=== PATIENT | male | born 1965 | race Caucasian/White ===

== ENCOUNTER 2018-10-22 06:46 | Emergency (ER) | payer BC ==
--- NOTE | 2018-10-22 08:56 | RAD REPORT ---
EXAM DESCRIPTION: Fili Spicer (2 Views)10/22/2018 7:45 am CLINICAL HISTORY: Chest pain COMPARISON: None FINDINGS: The lungs appear clear of acute infiltrate. The heart is normal size IMPRESSION: No acute abnormalities displayed
--- NOTE | 2018-10-22 09:19 | ER ---
Nurse's Notes [facility] Name: Celso Tipton Age: 53 yrs Sex: Male : 1965 Arrival Date: 10/22/2018 Time: 06:49 Bed 20 Private MD: Diagnosis: Chest pain on breathing Presentation: 10/22 07:11 Presenting complaint: Patient states: R lateral chest wall pain that began 1 week ago. ss Denies injury, SOB, cough and/or fever. Transition of care: patient was not received from another setting of care. Onset of symptoms was October 15, 2018. Risk Assessment: Do you want to hurt yourself or someone else? Patient reports no desire to harm self or others. Initial Sepsis Screen: Does the patient meet any 2 criteria? No. Patient's initial sepsis screen is negative. Does the patient have a suspected source of infection? No. Patient's initial sepsis screen is negative. Care prior to arrival: None. 07:11 Method Of Arrival: Ambulatory ss 07:11 Acuity: PHAN 3 ss Historical: - Allergies: 07:14 Codeine; ss - Home Meds: 07:14 None [Active]; ss - PMHx: 07:14 None; ss - PSHx: 07:14 back; shoulder repair; knee repair; ss - Immunization history:: Adult Immunizations up to date. - Social history:: Smoking status: Patient uses tobacco products, 2-3 PPD. - Ebola Screening: : Patient denies exposure to infectious person Patient denies travel to an Ebola-affected area in the 21 days before illness onset. Screenin:27 Abuse screen: Denies threats or abuse. Denies injuries from another. Nutritional ph screening: No deficits noted. Tuberculosis screening: No symptoms or risk factors identified. Fall Risk None identified. Assessment: 07:30 General: Appears in no apparent distress. comfortable, slender, well groomed, Behavior ph is calm, cooperative, appropriate for age, Denies fever, feeling ill. Pain: Complains of pain in chest Pain does not radiate. Neuro: Level of Consciousness is awake, alert, obeys commands, Oriented to person, place, time, situation, Denies weakness dizziness, headache. Cardiovascular: Reports chest pain, Denies diaphoresis, fatigue, lightheadedness, nausea, palpitations, shortness of breath, Capillary refill < 3 seconds in bilateral Patient's skin is warm and dry. Respiratory: Airway is patent Respiratory effort is even, unlabored, Respiratory pattern is regular, symmetrical, Denies cough, shortness of breath. GI: No signs and/or symptoms were reported involving the gastrointestinal system. Derm: Skin is intact, is healthy with good turgor, Skin is pink, warm \T\ dry. Musculoskeletal: Circulation, motion, and sensation intact. Range of motion: intact in all extremities. 08:27 Reassessment: Patient appears in no apparent distress at this time. Patient and/or ph family updated on plan of care and expected duration. Pain level reassessed. Patient is alert, oriented x 3, equal unlabored respirations, skin warm/dry/pink. Pt resting quietly, awaiting CXR results. 09:30 Reassessment: Patient appears in no apparent distress at this time. Patient and/or ph family updated on plan of care and expected duration. Pain level reassessed. Patient is alert, oriented x 3, equal unlabored respirations, skin warm/dry/pink. Pt d/c home w/ . Vital Signs: 07:14 BP 140 / 85; Pulse 73; Resp 18; Temp 97.9(TE); Pulse Ox 96% on R/A; Height 5 ft. 11 in. ss (180.34 cm); Pain 8/10; 07:14 Weight 77.11 kg; ss 08:45 BP 137 / 78; Pulse 69; Resp 18; Temp 97.5; Pulse Ox 97% on R/A; ph 07:14 Body Mass Index 23.71 (77.11 kg, 180.34 cm) ED Course: 06:49 Patient arrived in ED. al2 06:54 Lyndsay Spence, ELC is [facility]. kb 06:54 Tao Mast MD is Attending Physician. kb 07:11 Tosin Guadalupe, MATTHEW is Primary Nurse. ph 07:12 Triage completed. ss 07:14 Arm band placed on right wrist. ss 07:28 EKG done, by location and measurement technician. reviewed by Lyndsay RUIZ. at1 07:39 X-ray completed. Patient tolerated procedure well. Patient moved to radiology via jb2 wheelchair. Patient moved back from radiology. 07:50 Chest Pa And Lat (2 Views) XRAY In Process Unspecified. EDMS 08:29 Patient has correct armband on for positive identification. Bed in low position. Call ph light in reach. Side rails up X 1. Warm blanket given. PO fluids given. 09:39 No provider procedures requiring assistance completed. Patient did not have IV access ph during this emergency room visit. Administered Medications: No medications were administered Outcome: 09:18 Discharge ordered by . tesha 09:30 Patient left the ED. ph 09:30 Discharged to home ambulatory, with significant other. ph 09:30 Condition: good 09:30 Discharge instructions given to patient, Instructed on discharge instructions, follow up and referral plans. medication usage, Demonstrated understanding of instructions, follow-up care, medications. Signatures: Dispatcher [employer] EDMS Lyndsay Spence, SALES ACCOUNT REPRESENTATIVE-C SALES ACCOUNT REPRESENTATIVE-Travis Ward jb2 Katie José, RN RN Dafne Gonzalez, porter bath EKG Tat1 Tosin Guadalupe RN RN ph Love, Angelica al2
--- NOTE | 2018-10-22 09:20 | EDPHYS ---
Physician Documentation [facility] Name: Celso Tipton Age: 53 yrs Sex: Male : 1965 Arrival Date: 10/22/2018 Time: 06:49 Bed 20 Private MD: ED Physician Tao Mast HPI: 10/22 08:32 This 53 yrs old Male presents to ER via Ambulatory with complaints of Right kb chest wall Pain. 08:32 The patient or guardian reports chest pain that is located primarily in the anterior kb chest wall, right. Onset: 1 week(s) ago. The pain does not radiate. Associated signs and symptoms: The patient has no apparent associated signs or symptoms. The chest pain is described as aching. Duration: The patient or guardian reports a single episode. Modifying factors: The symptoms are alleviated by nothing. the symptoms are aggravated by palpation of area. Severity of pain: At its worst the pain was moderate in the emergency department the pain is unchanged. The patient has not experienced similar symptoms in the past. The patient has not recently seen a physician. 09:17 Pt reports the pain started a week ago. Worse with movement, deep breath and palpation. kb States "I just need an x-ray to make sure there is nothing in my lung." Reports he smokes 2-3 packs per day. Historical: - Allergies: 07:14 Codeine; ss - Home Meds: 07:14 None [Active]; ss - PMHx: 07:14 None; ss - PSHx: 07:14 back; shoulder repair; knee repair; ss - Immunization history:: Adult Immunizations up to date. - Social history:: Smoking status: Patient uses tobacco products, 2-3 PPD. - Ebola Screening: : Patient denies exposure to infectious person Patient denies travel to an Ebola-affected area in the 21 days before illness onset. ROS: 08:29 Constitutional: Negative for fever, chills, and weight loss, Respiratory: Negative for kb shortness of breath, cough, wheezing, and pleuritic chest pain, Abdomen/GI: Negative for abdominal pain, nausea, vomiting, diarrhea, and constipation, Back: Negative for injury and pain, : Negative for injury, bleeding, discharge, and swelling, MS/Extremity: Negative for injury and deformity, Skin: Negative for injury, rash, and discoloration, Neuro: Negative for headache, weakness, numbness, tingling, and seizure. 08:29 Cardiovascular: Positive for chest pain, of the right lateral anterior chest, Negative for edema, orthopnea, palpitations, paroxysmal nocturnal dyspnea. Exam: 08:29 Constitutional: This is a well developed, well nourished patient who is awake, alert, kb and in no acute distress. Head/Face: Normocephalic, atraumatic. Neck: Trachea midline, no thyromegaly or masses palpated, and no cervical lymphadenopathy. Supple, full range of motion without nuchal rigidity, or vertebral point tenderness. No Meningismus. Cardiovascular: Regular rate and rhythm with a normal S1 and S2. No gallops, murmurs, or rubs. Normal PMI, no JVD. No pulse deficits. Abdomen/GI: Soft, non-tender, with normal bowel sounds. No distension or tympany. No guarding or rebound. No evidence of tenderness throughout. Back: No spinal tenderness. No costovertebral tenderness. Full range of motion. Skin: Warm, dry with normal turgor. Normal color with no rashes, no lesions, and no evidence of cellulitis. MS/ Extremity: Pulses equal, no cyanosis. Neurovascular intact. Full, normal range of motion. Neuro: Awake and alert, GCS 15, oriented to person, place, time, and situation. Cranial nerves II-XII grossly intact. Motor strength 5/5 in all extremities. Sensory grossly intact. Cerebellar exam normal. Normal gait. 08:29 Chest/axilla: Inspection: normal, Palpation: tenderness, that is moderate, of the right lateral anterior chest, that totally reproduces the patient's complaints. 08:29 Respiratory: Breath sounds: decreased breath sounds, that are mild, are located in both bases. Vital Signs: 07:14 BP 140 / 85; Pulse 73; Resp 18; Temp 97.9(TE); Pulse Ox 96% on R/A; Height 5 ft. 11 in. ss (180.34 cm); Pain 8/10; 07:14 Weight 77.11 kg; ss 08:45 BP 137 / 78; Pulse 69; Resp 18; Temp 97.5; Pulse Ox 97% on R/A; ph 07:14 Body Mass Index 23.71 (77.11 kg, 180.34 cm) ss MDM: 07:04 Patient medically screened. kb 08:29 Data reviewed: vital signs, nurses notes. Data interpreted: Pulse oximetry: on room air kb is 96 %. Interpretation: normal. 09:17 Counseling: I had a detailed discussion with the patient and/or guardian regarding: the kb historical points, exam findings, and any diagnostic results supporting the discharge/admit diagnosis, radiology results, the need for outpatient follow up, a family practitioner, to return to the emergency department if symptoms worsen or persist or if there are any questions or concerns that arise at home. 10/22 07:21 Order name: Chest Pa And Lat (2 Views) XRAY; Complete Time: 09:21 kb 10/22 07:21 Order name: EKG; Complete Time: 07:21 kb 10/22 07:21 Order name: EKG - Nurse/Tech; Complete Time: 07:42 kb Administered Medications: No medications were administered Disposition: 13:58 Co-signature as Attending Physician, Tao Mast MD I agree with the assessment and kdr plan of care. Disposition: 10/22/18 09:18 Discharged to Home. Impression: Chest pain on breathing. - Condition is Stable. - Discharge Instructions: Chest Wall Pain, Gyae-wl-Yfax, Pleurisy, Cpiz-ip-Pice. - Prescriptions for Diclofenac Sodium 75 mg Oral Tablet, Delayed Release (E.C.) - take 1 tablet by ORAL route 2 times per day As needed; 30 tablet. Cyclobenzaprine 10 mg Oral Tablet - take 1 tablet by ORAL route every 8 hours As needed; 21 tablet. - Medication Reconciliation Form, Thank You Letter, Antibiotic Education, Prescription Opioid Use, Work release form form. - Follow up: Emergency Department; When: As needed; Reason: Worsening of condition. Follow up: Private Physician; When: 2 - 3 days; Reason: Recheck today's complaints, Continuance of care, Re-evaluation by your physician. Signatures: Dispatcher [employer] Lyndsay Figueroa, JOSEPH VALDEZ-Tao Murray MD MD [facility] Katie José RN RN ss Tosin Guadalupe RN RN ph Corrections: (The following items were deleted from the chart) 09:30 09:18 10/22/2018 09:18 Discharged to Home. Impression: Chest pain on breathing. ph Condition is Stable. Forms are Medication Reconciliation Form, Thank You Letter, Antibiotic Education, Prescription Opioid Use. Follow up: Emergency Department; When: As needed; Reason: Worsening of condition. Follow up: Private Physician; When: 2 - 3 days; Reason: Recheck today's complaints, Continuance of care, Re-evaluation by your physician. kb
--- NOTE | 2018-10-22 12:21 | EKG ---
Test Date: 2018-10-22 Test Time: 07:28:18 Computer Laboratory Technician: JULIET MEASUREMENT RESULTS: Intervals: Rate: 63 VT: 138 QRSD: 112 QT: 416 QTc: 425 [place]: P: 69 VT: 138 QRS: 84 T: 62 INTERPRETIVE STATEMENTS: Normal sinus rhythm Minimal voltage criteria for LVH, may be normal variant Borderline ECG No previous ECG available for comparison Electronically Signed On 10-22-18 12:20:05 DIABETES NURSE by Juan Barton
== END 2018-10-22 09:30 | disposition home or self-care (01) ==
LOC: ER 06:46
DX: R07.1 Chest pain on breathing (principal); F17.200 Nicotine dependence, unspecified, uncomplicated; Z88.5 Allergy status to narcotic agent
CPT/HCPCS: 71046; 93005; 99283

== ENCOUNTER 2019-01-21 09:39 | Emergency (ER) | payer BC ==
--- OUTSIDE RECORDS SUMMARY | 2019-01-21 09:52 | XMS REPORT | Encounter Summary ---
:1965 Author Reason for Visit Right abdominal pain; heartburn/indigestion Instructions 1. Body mass index 25-29 - overweight learning about healthy weight 2. Acid reflux omeprazole 40 mg capsule,delayed release 3. Abdominal pain urinalysis, dipstick CMP, serum or plasma CBC w/ auto diff lipase, serum or plasma 4. Alcohol dependence 5. Dysphagia ENT referral Discussion Note: None recorded. Plan of Care Reminders Provider Appointments Return to on or around Manuel Sanabria , Office 11/26/2018 Lab 10/29/2018 [facility] Urinalysis, Dipstick Practice ([facility]) [place] CMP, Serum 10/29/2018 [facility] or Plasma [facility] Laboratory CBC W/ 10/29/2018 [facility] Auto Diff Practice Laboratory Lipase, 10/29/2018 [facility] Serum or Plasma Practice Laboratory Referral ENT 10/29/2018 Referral Procedures None recorded. Surgeries None recorded. Imaging None recorded. Medications Name Start Date Multi Vitamin One daily omeprazole 40 mg capsule,delayed release Take 1 capsule every day by oral route. Viagra 100 mg tablet Take 1 tablet every day by oral route as needed. Medications Administered None recorded. Vitals Height Weight BMI Blood Pressure 5 ft 8.5 in 172.6 lbs 25.9 kg/m2 (1) 147/80 mm[Hg] (2) 142/81 mm[Hg] Lab Results Date Name Specimen Result Interpretation Description Value Range Status Address Urinalysis, Color Color yellow [facility] Dipstick [facility] ([facility]) West: [id number] [address] [facility] [address], [place] Color clear [facility] Appearance [facility] ([facility]) West: [address] [address] [facility] [facility] [address], [place] Color Glucose negative [facility] Practice ([facility]) West: [address] [address] [facility] [address], [place] Color Bilirubin negative [facility] ([facility]) West: [address] [address] [facility] [facility] [address], [place] Color Ketones negative [facility] ([facility]) West: [address] [facility] [address], [place] Color Specific 1.015 [facility] West: [address] [address], [place] Color Blood negative [facility] Practice ([facility] [place]: [address] [address], [place] Color PH 7.0 [facility] Practice ([facility] West: [address], [place] Color Protein negative [facility] Practice ([facility] [place]: [address] [address], [place] Color 0.2 [facility] Urobilinogen [facility] ([facility] West: [address] [address], [place] Color Nitrites negative [facility] Practice ([facility] West: [address], [place] Color negative [facility] ([facility]: [address] [address] [facility] [facility] [address], [place] Allergies Code Code System Name Reaction Severity Status Onset NKDA Problems Name Status Onset Date Source Smoker Active 12/08/2017 Alcohol Dependence Active 10/29/2018 Procedures Date Name Performed by 09/22/2012 Orthopedic Surgery Information not available 09/22/2007 Orthopedic Surgery Information not available 09/22/1999 Orthopedic Surgery Information not available Vaccine List Vaccine Type Tdap 09/22/2013 Social History Smoking Status Heavy Tobacco Smoker (1 PPD) Past Encounters 10/29/2018 Body Mass Index 25-29 - Overweight; Acid Reflux; Abdominal Pain; Alcohol Dependence; Dysphagia Manuel Sanabria MD: [id number] [address] [address], [place] [address], Ph. History of Present Illness Abdominal Pain Reported By: Patient Notes: RUQ pain, right chest region x 3 week. Pain is achy, burning lasting for hours, wax and wanes. No nausea, vomiting, diarrhea, constipation, fever, or chills. Seen at [facility] which was negative per patient. Review of Systems: ROS as noted in the HPI Review of Systems None recorded. Physical Exam General Adult Exam (Female) Reported By: Patient Constitutional: General Appearance: healthy-appearing, well-nourished Psychiatric: Insight: good judgement. Mental Status: active and alert, normal mood ENMT: Oropharynx: moist mucous membranes, no erythema Neck: Neck: supple, trachea midline. Lymph Nodes: no cervical LAD. Thyroid: no enlargement Lungs: Respiratory effort: no dyspnea. Auscultation: breath sounds normal Cardiovascular: Heart Auscultation: RRR, no murmurs Abdomen: Inspection and Palpation: soft, non-distended, no tenderness; RUQ, LLQ pain, acute
--- OUTSIDE RECORDS SUMMARY | 2019-01-21 09:52 | XMS REPORT | Clinical Summary ---
:1965 Author Organization [facility] Address [address] [place] [address] Care Team Providers Name Role Phone Asked, No Pcp Primary Care Provider Unavailable Allergies Active Allergy Reactions Severity Noted Date Comments Codeine Itching 04/27/2017 Medications No known medications Active Problems Problem Noted Date Left nephrolithiasis 04/27/2017 Ureteral obstruction 04/27/2017 Social History Tobacco Use Types Packs/Day Years Used Date Current Every Day Smoker 1 20 Smokeless Tobacco: Current User Tobacco Cessation: Ready to Quit: No; Counseling Given: Yes Alcohol Use Drinks/Week oz/Week Comments Yes 3 Cans of beer 1.8 daily Sex Assigned at Date Recorded Not on file Job Start Date Occupation Industry Not on file Not on file Not on file Travel History Travel Start Travel End No recent travel history available. Last Filed Vital Signs Not on file Plan of Treatment Health Maintenance Due Date Last Done Comments COLON CANCER SCREENING 2013 SHINGLES VACCINES (#1) 2013 INFLUENZA VACCINE 04/22/2019 Results Not on fileafter 01/20/2018 Advance Directives Patient has advance care planning documents on file. For more information, please contact:[address] [address]
--- NOTE | 2019-01-21 10:27 | ER ---
Nurse's Notes [facility] Name: Celso Tipton Jr Age: 53 yrs Sex: Male : 1965 Arrival Date: 01/21/2019 Time: 09:41 Bed 12 Private MD: Diagnosis: Streptococcal pharyngitis Presentation: 01/21 09:51 Presenting complaint: Patient states: yesterday woke up with fever, sore throat, body iw aches, yesterday took ibuprofen, felt weak today. Transition of care: patient was not received from another setting of care. Onset of symptoms was January 20, 2019. Risk Assessment: Do you want to hurt yourself or someone else? Patient reports no desire to harm self or others. Initial Sepsis Screen: Does the patient meet any 2 criteria? No. Patient's initial sepsis screen is negative. Does the patient have a suspected source of infection? No. Patient's initial sepsis screen is negative. Care prior to arrival: None. 09:51 Method Of Arrival: Ambulatory iw 09:51 Acuity: PHAN 4 iw Triage Assessment: 10:20 General: Behavior is calm. iw 10:24 General: Appears in no apparent distress. iw Historical: - Allergies: 09:52 Codeine; iw - Home Meds: 09:52 None [Active]; iw - PMHx: 09:52 None; iw - PSHx: 09:52 back; shoulder repair; knee repair; iw - Immunization history:: Adult Immunizations not up to date. - Social history:: Smoking status: Patient uses tobacco products, smokes one pack cigarettes per day. - Ebola Screening: : Patient negative for fever greater than or equal to 101.5 degrees Fahrenheit, and additional compatible Ebola Virus Disease symptoms Patient denies exposure to infectious person Patient denies travel to an Ebola-affected area in the 21 days before illness onset No symptoms or risks identified at this time. Screenin:32 Abuse screen: Denies threats or abuse. Denies injuries from another. Nutritional iw screening: No deficits noted. Tuberculosis screening: No symptoms or risk factors identified. Fall Risk None identified. Assessment: 10:00 General: Appears in no apparent distress. General: Reports fever for 1-2 days. Pain: iw Complains of pain in throat. Neuro: Level of Consciousness is awake, alert, obeys commands, Moves all extremities. Cardiovascular: Patient's skin is warm and dry. Respiratory: Airway is patent Respiratory effort is even, unlabored, Breath sounds are clear bilaterally. EENT: Throat. EENT: Throat is reddened has enlarged tonsils bilaterally with gag reflex present. Derm: Skin is intact, is healthy with good turgor. Musculoskeletal: Range of motion: intact in all extremities. Vital Signs: 09:52 BP 142 / 89; Pulse 114; Resp 18 S; Temp 100.9(TE); Pulse Ox 96% on R/A; Weight 80.74 iw kg; Height 5 ft. 11 in. (180.34 cm); Pain 8/10; 10:51 Pulse 99; Resp 16; iw 10:51 BP 136 / 84; Pulse 99; iw 09:52 Body Mass Index 24.83 (80.74 kg, 180.34 cm) iw ED Course: 09:41 Patient arrived in ED. as 09:52 Triage completed. iw 09:52 Lyndsay Spence FNP-C [facility]. kb 09:52 Derick Corrigan MD is Attending Physician. kb 09:52 Arm band placed on. iw 09:53 Tatyana Saunders, MATTHEW is Primary Nurse. iw 10:30 Patient has correct armband on for positive identification. iw 10:33 No provider procedures requiring assistance completed. Patient did not have IV access iw during this emergency room visit. Administered Medications: 10:32 Drug: Tylenol 1000 mg Route: PO; iw 12:58 Follow up: Response: No adverse reaction iw Outcome: 10:27 Discharge ordered by MD. kb 10:33 Discharged to home ambulatory. iw 10:33 Condition: good 10:33 Discharge instructions given to patient, Instructed on discharge instructions, follow up and referral plans. medication usage, Demonstrated understanding of instructions, follow-up care, medications, Prescriptions given X 1. 10:34 Patient left the ED. iw Signatures: Lyndsay Spence FNP-C FNP-Natayl Diaz as Tatyana Saunders, RN RN iw Corrections: (The following items were deleted from the chart) 13:43 10:51 Pulse 99bpm; Resp 16bpm; iw iw
--- NOTE | 2019-01-21 10:28 | EDPHYS ---
Physician Documentation [facility] Name: Celso Tipton Jr Age: 53 yrs Sex: Male : 1965 Arrival Date: 01/21/2019 Time: 09:41 Bed 12 Private MD: ED Physician Derick Corrigan HPI: 01/21 10:21 This 53 yrs old Male presents to ER via Ambulatory with complaints of Sore kb Throat. 10:21 The patient presents with sore throat. The patient describes throat pain as constant. kb Onset: The symptoms/episode began/occurred yesterday. Severity of symptoms: At their worst the symptoms were moderate, in the emergency department the symptoms are unchanged. Modifying factors: The symptoms are alleviated by nothing, the symptoms are aggravated by swallowing, Patient's oral intake status: good unaware of sick contact. Associated signs and symptoms: Pertinent positives: chills, fever, flu-like symptoms, arthralgias, Sore throat. The patient has experienced a previous episode. The patient has not recently seen a physician. Pt reports sore throat started yesterday. Today had chills, fever, body aches, malaise. . Historical: - Allergies: 09:52 Codeine; iw - Home Meds: 09:52 None [Active]; iw - PMHx: 09:52 None; iw - PSHx: 09:52 back; shoulder repair; knee repair; iw - Immunization history:: Adult Immunizations not up to date. - Social history:: Smoking status: Patient uses tobacco products, smokes one pack cigarettes per day. - Ebola Screening: : Patient negative for fever greater than or equal to 101.5 degrees Fahrenheit, and additional compatible Ebola Virus Disease symptoms Patient denies exposure to infectious person Patient denies travel to an Ebola-affected area in the 21 days before illness onset No symptoms or risks identified at this time. ROS: 10:22 Neck: Negative for injury, pain, and swelling, Cardiovascular: Negative for chest pain, kb palpitations, and edema, Respiratory: Negative for shortness of breath, cough, wheezing, and pleuritic chest pain, Abdomen/GI: Negative for abdominal pain, nausea, vomiting, diarrhea, and constipation, Back: Negative for injury and pain, MS/Extremity: Negative for injury and deformity, Skin: Negative for injury, rash, and discoloration, Neuro: Negative for headache, weakness, numbness, tingling, and seizure. 10:22 Constitutional: Positive for body aches, chills, fever, malaise, Negative for fatigue, poor PO intake, weight loss. 10:22 ENT: Positive for sore throat. Exam: 10:22 Constitutional: This is a well developed, well nourished patient who is awake, alert, kb and in no acute distress. Head/Face: Normocephalic, atraumatic. Neck: Trachea midline, no thyromegaly or masses palpated, and no cervical lymphadenopathy. Supple, full range of motion without nuchal rigidity, or vertebral point tenderness. No Meningismus. Chest/axilla: Normal chest wall appearance and motion. Nontender with no deformity. No lesions are appreciated. Cardiovascular: Regular rate and rhythm with a normal S1 and S2. No gallops, murmurs, or rubs. Normal PMI, no JVD. No pulse deficits. Respiratory: Lungs have equal breath sounds bilaterally, clear to auscultation and percussion. No rales, rhonchi or wheezes noted. No increased work of breathing, no retractions or nasal flaring. Abdomen/GI: Soft, non-tender, with normal bowel sounds. No distension or tympany. No guarding or rebound. No evidence of tenderness throughout. Skin: Warm, dry with normal turgor. Normal color with no rashes, no lesions, and no evidence of cellulitis. MS/ Extremity: Pulses equal, no cyanosis. Neurovascular intact. Full, normal range of motion. Neuro: Awake and alert, GCS 15, oriented to person, place, time, and situation. Cranial nerves II-XII grossly intact. Motor strength 5/5 in all extremities. Sensory grossly intact. Cerebellar exam normal. Normal gait. 10:22 ENT: External ear(s): are unremarkable, Ear canal(s): are normal, TM's: are normal, Nose: is normal, Mouth: is normal, Posterior pharynx: Airway: normal, no evidence of obstruction, Tonsils: bilaterally enlarged, with erythema, Uvula: normal, midline, swelling, that is moderate, erythema, that is moderate, exudate, is not appreciated. Vital Signs: 09:52 BP 142 / 89; Pulse 114; Resp 18 S; Temp 100.9(TE); Pulse Ox 96% on R/A; Weight 80.74 iw kg; Height 5 ft. 11 in. (180.34 cm); Pain 8/10; 10:51 Pulse 99; Resp 16; iw 10:51 BP 136 / 84; Pulse 99; iw 09:52 Body Mass Index 24.83 (80.74 kg, 180.34 cm) iw MDM: 09:54 Patient medically screened. kb 10:26 Data reviewed: vital signs, nurses notes. Data interpreted: Pulse oximetry: on room air kb is 96 %. Interpretation: normal. Counseling: I had a detailed discussion with the patient and/or guardian regarding: the historical points, exam findings, and any diagnostic results supporting the discharge/admit diagnosis, lab results, the need for outpatient follow up, a family practitioner, to return to the emergency department if symptoms worsen or persist or if there are any questions or concerns that arise at home. 01/21 09:52 Order name: Flu; Complete Time: 10:26 kb 01/21 09:52 Order name: Strep; Complete Time: 10:18 kb Administered Medications: 10:32 Drug: Tylenol 1000 mg Route: PO; iw 12:58 Follow up: Response: No adverse reaction iw Disposition: 16:58 Co-signature as Attending Physician, Derick Corrigan MD. rn Disposition: 01/21/19 10:27 Discharged to Home. Impression: Streptococcal pharyngitis. - Condition is Stable. - Discharge Instructions: Strep Throat, [id number]. - Prescriptions for Augmentin 875- 125 mg Oral Tablet - take 1 tablet by ORAL route every 12 hours for 10 days; 20 tablet. - Medication Reconciliation Form, Thank You Letter, Antibiotic Education, Prescription Opioid Use, Work release form form. - Follow up: Emergency Department; When: As needed; Reason: Worsening of condition. Follow up: Private Physician; When: 2 - 3 days; Reason: Recheck today's complaints, Continuance of care, Re-evaluation by your physician. Signatures: Dispatcher [employer] Lyndsay Figueroa, CATTLE BROKER-C CATTLE BROKER-Tatyana Diaz RN RN iw Derick Corrigan MD MD external relations director: (The following items were deleted from the chart) 10:34 10:27 01/21/2019 10:27 Discharged to Home. Impression: Streptococcal pharyngitis. iw Condition is Stable. Forms are Medication Reconciliation Form, Thank You Letter, Antibiotic Education, Prescription Opioid Use. Follow up: Emergency Department; When: As needed; Reason: Worsening of condition. Follow up: Private Physician; When: 2 - 3 days; Reason: Recheck today's complaints, Continuance of care, Re-evaluation by your physician. kb
[2019-01-21] MEDS ORDERED: ACETAMINOPHEN 500 MG TAB ONE (10:44)
== END 2019-01-21 10:34 | disposition home or self-care (01) ==
LOC: ER 09:39
DX: J02.0 Streptococcal pharyngitis (principal); Z88.5 Allergy status to narcotic agent; F17.210 Nicotine dependence, cigarettes, uncomplicated
CPT/HCPCS: 87081; 87804; 99283